=== PATIENT | female | born 1970 | race Hispanic/Latino ===

== ENCOUNTER 2018-08-10 19:48 | Emergency (ER) | payer OTHER, SELFPAY ==
[2018-08-10] MEDS ORDERED: IBUPROFEN 200 MG TAB ONE (21:04)
[2018-08-10] MEDS ORDERED: IBUPROFEN 400 MG TABLET ONE (21:04)
== END 2018-08-10 21:35 | disposition home or self-care (01) ==
LOC: EDH 19:48
DX: S63.591A Other specified sprain of right wrist, initial encounter (principal); F41.9 Anxiety disorder, unspecified; X58.XXXA Exposure to other specified factors, initial encounter; Y93.89 Activity, other specified; Y92.89 Other specified places as the place of occurrence of the external cause; Y99.8 Other external cause status
CPT/HCPCS: 29125

== ENCOUNTER 2020-11-20 14:39 | Emergency (ER) | payer OTHER ==
[~2020-11-20] VITALS: Ht 157.5 cm; Wt 104.3 kg
[2020-11-20 15:22] LABS: BASOPHILS % (AUTO) 0.6 % (0.0-5.0); EOSINOPHILS % (AUTO) 2.2 % (0.0-8.0); HEMATOCRIT 39.5 % (36-48); LYMPHOCYTES % (AUTO) 21.8 % (21.0-51.0); MEAN CORPUSCULAR HEMOGLOBIN 29.5 pg (27.0-33.0); MEAN CORPUSCULAR HGB CONC 33.7 g/dL (32.0-36.0); MEAN CORPUSCULAR VOLUME 87.6 fL (79-99); MONOCYTES % (AUTO) 7.2 % (3.0-13.0); NEUTROPHILS % (AUTO) 67.9 % (40.0-77.0); PLATELET COUNT (AUTO) 362 K/uL (130-400); RED BLOOD CELL COUNT(AUTO) 4.51 MIL/uL (4.00-5.50); RED CELL DISTRIBUTION WIDTH 12.1 % (11.0-15.5); WHITE BLOOD COUNT (AUTO) 7.1 K/uL (4.8-10.8)
[2020-11-20 15:26] LABS: APPEARANCE,URINE Clear (CLEAR); BILIRUBIN,URINE Negative (NEGATIVE); COLOR,URINE Yellow (YELLOW); GLUCOSE, URINE (UA) Negative (NEGATIVE); KETONES,URINE Negative (NEGATIVE); LEUKOCYTE ESTERASE ,URINE Negative (NEGATIVE); NITRATE,URINE Negative (NEGATIVE); OCCULT BLOOD,URINE Negative (NEGATIVE); PROTEIN,URINE Negative (NEGATIVE); UROBILINOGEN,URINE 0.2 mg/dL (0.2-1.0)
[2020-11-20 15:28] LABS: HCG,QUAL RESULT NEGATIVE (NEGATIVE)
[2020-11-20 15:36] LABS: CREATININE 0.7 mg/dL (0.5-1.5); POTASSIUM 3.8 mmol/L (3.5-5.1)
[2020-11-20 15:41] LABS: BILIRUBIN,TOTAL 0.6 mg/dL (0.2-1.0); TOTAL PROTEIN, SERUM 8.4 g/dL (6.0-8.3)
[2020-11-20] MEDS ORDERED: KETOROLAC 30MG VIAL (30MG/ML) IV ONE (18:30)
[2020-11-20 20:00] VITALS: BP 126/76
[2020-11-20] MEDS ORDERED: LIDOP TP (20:27)
[2020-11-20] MEDS ORDERED: ORPH-43 PO (20:27)
== END 2020-11-20 20:40 | disposition home or self-care (01) ==
LOC: EDH 14:39
DX: M62.830 Muscle spasm of back (principal); R10.9 Unspecified abdominal pain; M06.9 Rheumatoid arthritis, unspecified; Z87.442 Personal history of urinary calculi; M19.90 Unspecified osteoarthritis, unspecified site; Z79.899 Other long term (current) drug therapy
CPT/HCPCS: 36415; 74176; 80053; 81003; 81025; 85025; 96374; 99284; J1885

== ENCOUNTER 2024-03-28 07:18 | Emergency (ER) | payer SELFPAY ==
[~2024-03-28] VITALS: Ht 154.9 cm; Wt 113.4 kg
[~2024-03-28 07:18] MED LIST: LIDOP TP; ORPH100T4 PO
--- NOTE | 2024-03-28 07:39 | ERN ---
General Chief Complaint: Ankle Problem Stated Complaint: RT ANKLE PAIN Time Seen by MD: 07:24 Source: patient History of Present Illness Initial Comments Patient is a 53-year-old female coming in to be evaluated for right ankle pain. Per patient he states she was walking in the mud and bent her right ankle. States that the pain is localized to the right ankle region. Allergies: Coded Allergies: No Allergy Information Available (Verified Allergy, Unknown, 12/31/15) Home Meds Active Scripts Lidocaine (Lidoderm Patch 5%) 1 Patch Patch, 1 PATCH TP DAILY PRN for PAIN LEVEL 1 TO 5, #30 ADH.PATCH 0 Refills Prov:BELEM ESTEBAN MD 11/20/20 Orphenadrine Citrate (Orphenadrine Citrate) 100 Mg Tablet.er, 100 MG PO [id number], #20 TAB 0 Refills Prov:BELEM ESTEBAN MD 11/20/20 Past Medical History Past Medical History: Kidney Stone, Other Medical History Other: RA, OA Past Surgical History: Other Surgical History Other: KIDNEY STONES ROS Dictation CONSTITUTIONAL: No chills, no fever, no weakness, no diaphoresis, no malaise. HEAD/FACE: No signs of trauma. EENT: No eye pain, no blurred vision, no tearing, no double vision, no ear pain, no ear discharge, no nose pain, no nasal congestion, no throat pain, no throat swelling, no mouth pain. RESPIRATORY: No cough, no orthopnea, no SOB, no stridor, no wheezing. CARDIOVASCULAR: No chest pain, no edema, no palpitations, no syncope. GASTROINTESTINAL/ABDOMINAL: No abdominal pain, no constipation, no diarrhea, no nausea, no vomiting. GENITOURINARY: No abnormal discharge, no dysuria, no frequent urination, no hematuria. No complaints of pain in the genitals. MUSCULOSKELETAL: No back pain, no gout, joint pain, joint swelling, no muscle pain, no muscle stiffness, no neck pain. INTEGUMENTARY: No change in color, no change in hair/nails, no dryness, no lesion, no lumps, no rash. NEUROLOGICAL/PSYCH: No anxiety, not depressed, no emotional problem, no headache, no numbness, no pre-existing deficit, no history of seizures, no tremors, no weakness. HEMATOLOGIC/LYMPHATIC: Not anemic, no history of blood clots, no apparent bleeding, no bruising, glands not swollen. All Systems Negative, Except as Noted. Physical Exam Physical Exam Dictation VITAL SIGNS: Reviewed. GENERAL APPEARANCE: Alert, oriented x3, no acute distress, obese. HEAD AND FACE: Non-traumatic. EYES: PERRL, pink conjunctivas, eyelid no trauma, anterior chamber clear. EARS: Pinnas intact and no signs of trauma or erythema. Ear canals clear and no discharge. TMs no erythema. NOSE: No discharge, no bleeding. OROPHARYNX: Mouth normal, teeth no caries, tongue pink. Pharynx clear, no erythema. Tonsils no exudates, no abscesses noted. Mucous membrane moist. NECK: Supple, non-tender, no thyromegaly, no masses, no JVD, no bruits. BREAST: Deferred. CHEST: No tenderness, no crepitus, no paradoxical movement, no retractions. LUNGS: Clear, well-ventilated, symmetric, no rales, no wheezing, no rhonchi, no stridor, good breath sounds bilaterally. HEART: Regular rate, regular rhythm, no murmur, no gallops. VASCULAR: No peripheral edema. ABDOMEN: Soft, positive bowel sounds, nondistended, no guarding, nontender, no rebound, no masses no hepatomegaly, no splenomegaly, no Vang's sign, no hernias. RECTAL: Deferred. GENITAL: Deferred. NEUROLOGICAL: Normal speech, gross motor function intact, gross sensory function intact. MUSCULOSKELETAL: Neck nontender, full range of motion, back nontender, full r iker of motion. EXTREMITIES: Nontender, full range of motion. Right ankle pain on palpation, ankle swelling, pain on palpation SKIN: Color pink, dry, no turgor, no rash, no lacerations, no abrasions, no contusions. LYMPHATICS: Deferred. Results Laboratory and Microbiology Labs Reviewed?: Yes EKG/XRAY/US/CT/MRI X-RAY Comment ankle xray- bimalleolar fracture MDM MDM: Differential diagnosis: Bimalleolar fracture, fibula fracture, Patient is a 53-year-old female coming in to be evaluated for ankle pain. X-ray disclose bimalleolar fracture. Sugar-tong splint will be placed for support crutches will be provided. Patient will be discharged in stable condition I advised her appropriate follow up with ortho and PCP in order for further management and ongoing management. ED Course Orders Procedure Category Date Status Time Ankle Comp 3vws Rt RAD 03/28/24 Taken 07:32 Acetaminophen 500mg PHA 03/28/24 Complete Tab (Tylenol 500mg T 08:00 Naproxen (Naprosyn) PHA 03/28/24 Complete 08:00 Current Medications Medications (Trade) Dose Ordered Sig/Serena Route PRN Reason Start Time Stop Time Status Last Admin Dose Admin Acetaminophen (TYLenol 500MG TAB) 500 mg ONCE ONCE PO 03/28/24 08:00 03/28/24 08:01 DC Naproxen (Naprosyn) 500 mg ONCE ONCE PO 03/28/24 08:00 03/28/24 08:01 DC Vital Signs Date Time Temp Pulse Resp B/P (MAP) Pulse Ox O2 Delivery O2 Flow Rate FiO2 03/28/24 07:35 97.9 64 16 127/76 99 Room Air* 0 21 03/28/24 07:19 97.9 74 16 127/76 97 Room Air 0 DX & DISP Disposition: Discharge Departure Impression: Primary Impression: Bimalleolar fracture of right ankle Condition: Stable Scripts Naproxen (Naproxen) 500 Mg Tablet 1 TAB PO BID for pain for 7 Days, #14 TAB 0 Refills Prov: TRUNG JETT MD 03/28/24 Additional Instructions: FOLLOW-UP WITH PRIMARY CARE PROVIDER IN 1 TO 2 DAYS. TAKE MEDICATIONS DIRECTED HERE IN THE EMERGENCY ROOM. OKAY TO CONTINUE HOME MEDICATIONS UNLESS OTHERWISE DISCUSSED DURING YOUR VISIT IN THE EMERGENCY ROOM TODAY. RETURN TO YOUR NEAREST EMERGENCY ROOM IF SYMPTOMS WORSEN OR IF THERE IS NO IMPROVEMENT. CALL 911 IF YOU NEED IMMEDIATE ASSISTANCE. TAKE TYLENOL [id number] NEEDED AND IF NO CONTRAINDICATIONS ARE PRESENT. INCREASE ORAL HYDRATION. A WOUND CULTURE OR URINE CULTURE WAS ORDERED HERE IN THE EMERGENCY ROOM DEPARTMENT PLEASE FOLLOW-UP WITH PRIMARY CARE PROVIDER AND ADVISE THEM TO GET REPEAT PORTS FROM OUR FACILITY. IF YOU HAD ANY CHRIS WRAP/SPLINTS THAT WERE APPLIED HERE, PLEASE DO NOT REMOVE THEM UNTIL YOU SEE YOUR PRIMARY CARE OR SPECIALTY. Referrals: Referrals: SELF,REFERRAL (PCP) HEIKE MEJIAS MD, LUIS A MD Time of Disposition: 08:54 TRUNG JETT MD Mar 28, 2024 07:39
[2024-03-28] MEDS: NAPROXEN 500 MG TABLET PO ONE (07:41)
[2024-03-28] MEDS: acetaMINOPHEN 500 MG TABLET PO ONE (07:42)
[2024-03-28] MEDS ORDERED: NAPR-1194 PO (08:58)
--- NOTE | 2024-03-28 09:21 | HMCIMG ---
ANKLE COMP 3VWS RT REASON: ankle pain/ fall TECHNIQUE: 3 views were obtained. FINDINGS: There is a trimalleolar fracture of the right ankle, including a spiral fracture distal fibular metaphysis, the fracture of the medial malleolus and a fracture of the posterior lip of the distal tibia. Ankle mortise appears preserved. Talus and calcaneus appear unremarkable. IMPRESSION: 1. Trimalleolar fracture of the right ankle.
[2024-03-28 10:20] VITALS: BP 123/75; PULSE 68; RESP 17; TEMP 97.8; O2SAT 99
--- NOTE | 2024-03-28 10:20 | NUR ---
PLACED SUGARTONGUE SPLINT TO RLE, GOOD PMS. GAVE PT CRUTCHES ACCORDING TO HEIGHT. PT TAUGHT BACK ON HOW TO USE CRUTCHES.
== END 2024-03-28 10:15 | disposition home or self-care (01) ==
LOC: EDH 07:18
DX: S82.851A Displaced trimalleolar fracture of right lower leg, initial encounter for closed fracture (principal); Z79.899 Other long term (current) drug therapy; X58.XXXA Exposure to other specified factors, initial encounter; Y93.01 Activity, walking, marching and hiking; Y92.89 Other specified places as the place of occurrence of the external cause; Y99.8 Other external cause status
CPT/HCPCS: 29515; 73610; 99283

== ENCOUNTER 2024-03-30 16:17 | Inpatient (IN) | payer SELFPAY ==
[~2024-03-30] VITALS: Ht 157.5 cm; Wt 109.7 kg
[~2024-03-30 16:17] MED LIST changes: +NAPR-1194 PO
[2024-03-30 17:36] LABS: BASOPHILS # (AUTO) 0.04 K/uL (0.00-0.20); BASOPHILS % (AUTO) 0.5 % (0.0-5.0); EOSINOPHILS # (AUTO) 0.31 K/uL (0.00-0.70); EOSINOPHILS % (AUTO) 4.2 % (0.0-8.0); HEMATOCRIT 40.7 % (36-48); IMMATURE GRANULOCYTE ABSOLUTE 0.03 K/uL (0-1); LYMPHOCYTES # (AUTO) 2.1 K/uL (1.0-4.8); LYMPHOCYTES % (AUTO) 28.4 % (21.0-51.0); MEAN CORPUSCULAR HEMOGLOBIN 30.5 pg (27.0-33.0); MEAN CORPUSCULAR HGB CONC 33.2 g/dL (32.0-36.0); MEAN CORPUSCULAR VOLUME 92.1 fL (79-99); MONOCYTES # (AUTO) 0.5 K/uL (0.1-1.0); MONOCYTES % (AUTO) 6.7 % (3.0-13.0); NEUTROPHILS # (AUTO) 4.4 K/uL (1.8-7.7); NEUTROPHILS % (AUTO) 59.8 % (40.0-77.0); PLATELET COUNT (AUTO) 314 K/uL (130-400); RED BLOOD CELL COUNT(AUTO) 4.42 MIL/uL (4.00-5.50); RED CELL DISTRIBUTION WIDTH 12.4 % (11.0-15.5); WHITE BLOOD COUNT (AUTO) 7.3 K/uL (4.8-10.8)
--- NOTE | 2024-03-30 17:38 | ERN ---
General Chief Complaint: Lower Extremity Pain/Injury Stated Complaint: SENT BY , RIGHT ANKLE FRACTURE Time Seen by MD: 16:20 Time Seen by Midlevel: 16:20 Source: patient History of Present Illness Initial Comments 53-year-old female presents to the ED for evaluation of right lower extremity pain post fall onset two days ago. Patient reports she had x-rays done two days ago in our emergency department which showed a bimalleolar fracture. She was splinted and sent home. Today she follow up with an housing development specialist who recommended she return to the ER for further evaluation. Allergies: Coded Allergies: No Known Drug Allergies (Verified Allergy, Unknown, 03/30/24) Home Meds Active Scripts Naproxen (Naproxen) 500 Mg Tablet, 1 TAB PO BID for pain for 7 Days, #14 TAB 0 Refills Prov:TRUNG JETT MD 03/28/24 Lidocaine (Lidoderm Patch 5%) 1 Patch Patch, 1 PATCH TP DAILY PRN for PAIN LEVEL 1 TO 5, #30 ADH.PATCH 0 Refills Prov:BELEM ESTEBAN MD 11/20/20 Orphenadrine Citrate (Orphenadrine Citrate) 100 Mg Tablet.er, 100 MG PO [id number], #20 TAB 0 Refills Prov:BELEM ESTEBAN MD 11/20/20 Past Medical History Past Medical History: Kidney Stone, Other Medical History Other: RA, OA Past Surgical History: Other Surgical History Other: KIDNEY STONES ROS Dictation Constitutional: Negative for fever,chills, and weight loss Eyes: Negative for injury, pain,redness, and discharge ENT: Negative for injury,pain or swelling Cardiovascular: Negative for chest pain, palpitations, and edema Respiratory: Negative for shortness of breath, cough, and wheezing, Abdomen/GI: Negative for abdominal pain, nausea, vomiting, diarrhea, and constipation Back: Negative for injury and pain : Negative for injury, bleeding and discharge MS/Extremity: Positive for right ankle pain Skin: Negative for rash, and discoloration Neuro: Negative for headache, weakness, numbness, tingling, and seizure Psych: Negative for suicide ideation, homicidal ideation, and hallucinations Physical Exam Physical Exam Dictation General: awake, alert, NAD Head/Face: Normocephalic, atraumatic Eyes: PERRL, EOMI, vision at baseline ENT: oral cavity clear, TMs clear, no signs of infection Neck: Trachea midline, supple, no nuchal rigidity Cardiovascular: RRR, normal S1/S2, No MRGs, no JVD Respiratory: CTAB, no respiratory distress, No rales or wheezes Abdomen: Soft, non-tender, non-distended, normal bowel sounds, no guarding or rebound. Skin: Warm, dry, normal turgor, no rash MS/Extremity: Swelling to right ankle, Pulses equal, no cyanosis, neurovascular intac Neuro: COAx4, GCS 15, strength 5/5, CN 2-12 intact, normal cerebellar exam, normal gait, Psych: Normal behavior, mood, and affect normal Results Laboratory and Microbiology Lab and Micro Result MDM MDM: Differential diagnosis: Bimalleolar Fracture, injury, fall ERICK Harrell accepts patient for admission. Will take patient to the OR tomorrow morning Rationale: Tests considered and ordered secondary to shared decision making include: labs and radiology Risk of complication and/or morbidity or mortality of patient management: None Medications-Per medication reconciliation Need for hospitalization: Patient does meet criteria for hospitalization. Need for emergency major/minor surgery: No There are no social concerns with this patient. Patient's prior external medical records from other ER visits were reviewed by me as indicated. Prior testing and results from previous visits were reviewed. Prior tests were taken into account with medical decision making and resource utilization, independent historian/historians were used to obtain complete medical history. I independently interpreted the test that were performed, results were reviewed by me and considered findings on radiology if ordered. Medical management and examination interpretation discussions were had by me with other qualified healthcare professionals as indicated for the patient's care. ED Course [facility] [address] [place] [id number] IMAGING REPORT Signed PATIENT: MERARI SCHREIBER MR#: [id number] : 1970 SEX: F AGE: 53 LOCATION: EDHIP ORDER 55 STATUS: ADM IN REPORT#: [id number] SERVICE 53 REASON: previous fx ORDERING PHYSICIAN: KATARINA MARAVILLA PROCEDURE: [id number] - ANKLE COMP 3VWS RT RIGHT ANKLE RADIOGRAPHS - 3 VIEWS INDICATION: Pain COMPARISON: 03/28/2024 FINDINGS/IMPRESSION: AP, lateral, and oblique views. Trimalleolar fracture, unchanged, without callus formation. DICTATED BY: EMIGDIO PALACIO MD DATE: 03/30/241834 ELECTRONICALLY SIGNED BY: EMIGDOI PALACIO MD DATE: 03/30/241838 DX & DISP Disposition: Inpatient Decision to Admit Date: Mar 30, 2024 Departure Impression: Primary Impression: Bimalleolar fracture of right ankle Condition: Stable Referrals: SELF,REFERRAL (PCP) I have reviewed, & agreed with my scribe's, documentation. (I, Shirlene Ruiz, am scribing for MIRIAM Maravilla) I performed the substantive portion of the visit. I have reviewed and personally made and approve the management plan that is documented in the notes by myself or the ROSIE. I acknowledge full responsibility for the patient's management plan. I personally scribed for KATARINA MARAVILLA ([employer]) on 03/30/24 at 17:38. Electronically submitted by Shirlene Ruiz ([employer]). I personally scribed for KATARINA MARAVILLA ([employer]ETH[employer]ARIKA) on 03/30/24 at 17:39. Electronically submitted by Shirlene Ruiz ([employer]). I personally scribed for KATARINA MARAVILLA (STACIE) on 03/30/24 at 17:54. Electronically submitted by Shirlene Ruiz ([employer]). KATARINA MARAVILLA Mar 30, 2024 17:38
[2024-03-30 17:49] LABS: INR <= 0.93 (0.85-1.15); PROTHROMBIN TIME 9.9 SEC (9.6-11.6)
[2024-03-30 17:50] LABS: PARTIAL THROMBOPLASTIN TIME 24.6 SEC (26.3-35.5)
[2024-03-30 17:51] LABS: CREATININE 0.6 mg/dL (0.5-1.0); POTASSIUM 3.9 mmol/L (3.5-5.1)
[2024-03-30] MEDS ORDERED: ondanSETRON 4MG INJ IVP PRN (18:30)
[2024-03-30] MEDS ORDERED: LACTATED RINGERS 1000ML 1,000 ML IV SCH ×2 (18:30→19:30)
[2024-03-30] MEDS ORDERED: PANTOPrazole 40 MG/VIAL IVP SCH (18:30)
[2024-03-30] MEDS ORDERED: IpraTROPium/alBUTERol SULFATE 3 ML SOLUTION IH PRN (18:30)
[2024-03-30] MEDS ORDERED: morPHINE 2 MG SYG IVP PRN (18:30)
[2024-03-30] MEDS ORDERED: ketOROlac 15MG/ML VIAL (15MG/ML) IV PRN (18:30)
[2024-03-30] MEDS ORDERED: acetaMINOPHEN 325 MG TAB PO PRN ×2 (18:30→19:30)
--- NOTE | 2024-03-30 18:39 | HMCIMG ---
RIGHT ANKLE RADIOGRAPHS - 3 VIEWS INDICATION: Pain COMPARISON: 03/28/2024 FINDINGS/IMPRESSION: AP, lateral, and oblique views. Trimalleolar fracture, unchanged, without callus formation.
--- NOTE | 2024-03-30 18:41 | HMCIMG ---
ULTRASOUND VENOUS DOPPLER RIGHT LOWER EXTREMITY INDICATION: Pain and swelling. TECHNIQUE: Routine grayscale and color Doppler ultrasound of the right lower extremity veins performed. COMPARISON: None. FINDINGS: The demonstrated veins of the right lower extremity including the common femoral vein, femoral vein, and popliteal vein are associated with normal compressibility, augmentation, and flow. Normal respiratory variation was identified. No evidence for echogenic intraluminal thrombus. IMPRESSION: No evidence for deep venous thrombosis.
[2024-03-30] MEDS ORDERED: HYDROcodone/APAP 5/325 1 TAB TABLET PO PRN ×2 (19:30)
--- NOTE | 2024-03-30 20:39 | NUR ---
PATIENT REPORTS SHE DOES NOT TAKE ANY PRESCRIBED MEDICATIONS
[2024-03-30] MEDS: ENOXAPARIN SODIUM 30 MG/0.3 ML SQ ONE (20:51)
[2024-03-30 21:00] VITALS: BP 138/79; PULSE 88; RESP 20; TEMP 97.9
[2024-03-30 21:25] VITALS: O2SAT 98
[2024-03-30 23:41] VITALS: BP 113/71; PULSE 90; RESP 18; TEMP 98.7
[2024-03-31] VITALS (26 sets, daily range): BP systolic 105–145; BP diastolic 65–84; PULSE 59–100; RESP 16–24; TEMP 97.3–98.4; O2SAT 96–99
--- NOTE | 2024-03-31 07:41 | EKG ---
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
--- NOTE | 2024-03-31 08:00 | NUR ---
Dr. Corona present on unit.
[2024-03-31] MEDS: ceFEPime HCL 2 GM VIAL IVPB SCH (08:48)
--- NOTE | 2024-03-31 12:40 | NUR ---
[facility] CM MET WITH PT AND DAUGHTER IN ROOM, ASSESSMENT DONE. PATIENT IS INDEPENDENT PRIOR TO ADMISSION, LIVES AT HOME WITH HER SONS. PT HAS CRUTCHES AT HOME. DENIES ANY OTHER EQUIPMENT/SERVICES. FEELS SAFE TO GO BACK HOME, STILL WORK AND DRIVE, DAUGHTER ABLE TO ASSIST WITH TRANSPORTATION AND NEEDS NECESSARY. PT IS SELF-PAY, SONDRA ASSISTING PATIENT W/NEEDS. PT GIVEN [employer] INFO, [employer] LOW COST MED PLANS, AND GOOD RX. INFORMED PT MIGHT NEED A WALKER FOR SAFE DC HOME, PT UNABLE TO PAY PRIVATELY AT THIS TIME, HOSPITAL TO ASSIST PT WITH WALKER ONCE STABLE, PT MAY TAKE WALKER IN ROOM ONCE READY TO DC. PRIMARY NURSE AWARE. CLINICAL SPLIT LEATHER MOSSER EMMANUEL MILES AWARE. CM TO CONTINUE TO FOLLOW UP. Addendum: 04/01/24 at 1244 by WILLIE CARROLL LVN CM Amended: Links added.
[2024-03-31] MEDS ORDERED: ROPivacaine 0.5% 5MG/ML 30ML ONE (17:45)
[2024-03-31] MEDS ORDERED: LIDOCAINE 2%-EPI 1:200,000 20 ML VIAL IJ ONE (17:45)
[2024-03-31] MEDS ORDERED: dexaMETHasone SOD PHOSPHATE 10MG/ML 1ML VIAL ONE (17:47)
[2024-03-31] MEDS ORDERED: ondanSETRON 4MG INJ ONE (17:51)
[2024-03-31] MEDS ORDERED: proPOFol 10 MG/ML 20ML VIAL IV ONE ×2 (17:51→19:29)
[2024-03-31] MEDS ORDERED: rocuRONium bROMide 10MG/1ML 5ML VL ONE (17:51)
[2024-03-31] MEDS ORDERED: MIDAZOLAM HCL 1 MG/ML 2ML VIAL ONE (17:51)
[2024-03-31] MEDS ORDERED: FENTanyl CITRate PF 50 MCG/1 ML 5ML AMP IV ONE (17:52)
[2024-03-31] MEDS ORDERED: ceFAZolin SODIUM 1 GM VIAL ONE ×2 (18:26→18:38)
[2024-03-31] MEDS: ceFAZolin SODIUM 2 GM VIAL IVPB ONE (18:40)
[2024-03-31] MEDS ORDERED: NEOSTIGMINE METHYLSULFATE 1MG/ML IV ONE (19:43)
[2024-03-31] MEDS ORDERED: GLYCOPYRROLATE 0.2 MG/ML 5 ML VIAL ONE (19:43)
[2024-03-31] MEDS ORDERED: ketOROlac 30MG VIAL (30MG/ML) ONE (19:46)
[2024-03-31] MEDS ORDERED: FENTanyl CITRate PF 50 MCG/1 ML 2ML VIAL ONE (19:47)
--- NOTE | 2024-03-31 19:58 | OP ---
Operative Note: DATE OF PROCEDURE: 03/31/24 SURGEON: HEIKE MEJIAS MD PROMOTIONAL DEMONSTRATOR: [Frankie Ch CFA] ANESTHESIA: [General anesthesia plus regional block] ANESTHESIOLOGIST/MEDICAL TECHNOLOGIST CHIEF: [Gelacio Nath CRNA] PREOPERATIVE DIAGNOSIS: [Right ankle trimalleolar fracture] POSTOPERATIVE DIAGNOSIS: [Save] Implants: [[employer]ruff [employer]hew small fragment set. One 1/3 tubular plate, eight holes, seven screws. 2.7 locking plate, four holes and three screws.] PROCEDURE: [Open reduction internal fixation right ankle lateral malleolus and medial malleolar fracture.] ESTIMATED BLOOD LOSS: [Less than 50 mL] INDICATIONS: [The patient is a 53-year-old female that sustained a twisting injuries that resulted in a trimalleolar fracture. The patient was evaluated in the emergency room and then in my office and she has been admitted for an open reduction internal fixation of the unstable fracture. Procedure understood, risks, benefits and possible complications and she agreed signed the consent form.] * DESCRIPTION OF PROCEDURE: [After adequate general anesthesia was achieved and regional block obtained the patient's right lower extremity was prepped and draped in the usual manner previous placement of the tourniquet in the proximal thigh. The extremity was elevated and exsanguinated with an Esmarch bandage the tourniquet was inflated to 250 mmHg. Attention was given to the l ateral aspect of the ankle where a longitudinal incision was carried down from the tip of the malleolus proximally for approximately 10 cm through the skin and subcutaneous tissue. We proceeded to dissect free the fibula where the fracture was noted to be present and had an oblique pattern. With the use of the bone clamp and the fracture was reduced. A 2.7 lag screw was placed at the fracture site perpendicular to the fracture line previous drilling of both cortices obtaining an adequate fixation of the fracture. Then a [employer]ruff [employer] Nephew lateral malleolar plate was applied and secured 1st with one distal locking screw and then one proximal cortical screw. Once the fracture was adequately noted to be reduced and the plate in adequate position we proceeded to complete the reduction with application of more cortical screws proximally and locking screws distally. X-rays taken revealed an adequate reduction of the fracture. The syndesmosis was then tested and noted to be intact. Attention was then given to the medial malleolus where in the x-rays AP view it was noted the displaced fracture. For this reason a longitudinal incision was carried down in the medial malleolus to the skin followed by the dissection of the subcutaneous tissue the fracture was easily identified and noted to be a longitudinal fracture of the posterior part of the medial malleolus was displaced proximally. We then proceeded to reduce the fracture bringing it to its normal position using a bone clamp. The 2nd four hole plate was then inserted previous contouring to use as a buttress plate in the posteromedial aspect of the bone securing it with three screws, obtaining an adequate reduction. Final x-rays revealed an acceptable reduction of the medial and lateral malleolus fracture. The small posterior malleolar fracture remained slightly displaced but consisted of only less than 10% of the articular surface of the posterior aspect of the plafond. The wounds were then copiously irrigated with antibiotic solution and we proceeded to close the wounds with a approximation of the subcutaneous tissue with 2-0 Vicryl inverted stitches in both sides followed by approximation of the skin with david. The wounds were covered with Xeroform, 4x4s and cast padding was applied followed by a 2nd cast padding that involved all of the lower leg and foot and then a fiberglass posterior splint, short leg length was then applied and secured with the use of Dusty bandages. Once the cast splint was dry we proceeded to awaken the patient up and extubated, and taking her then to recovery room for follow-up by anesthesia. There were no complications in the procedure] HEIKE MEJIAS MD Mar 31, 2024 19:58
[2024-03-31] MEDS ORDERED: DiphenhydrAMINE HCL 25 MG CAPSULE PO PRN (20:00)
[2024-03-31] MEDS ORDERED: ceFAZolin SODIUM 2 GM VIAL IVP SCH (20:00)
[2024-03-31] MEDS ORDERED: HYDROcodone/APAP 5/325 1 TAB TABLET PO PRN ×2 (20:00)
[2024-03-31] MEDS: 0.9%NACL 1000ML 1,000 ML IV SCH (20:00)
[2024-03-31] MEDS: FENTanyl CITRate PF 50 MCG/1 ML 2ML VIAL ONE (20:22)
[2024-03-31] MEDS: acetaMINOPHEN 100 ML ONE (20:42)
[2024-04-01 00:45] VITALS: BP 113/74; PULSE 80
[2024-04-01] MEDS: ceFAZolin SODIUM 2 GM VIAL IVP SCH (01:39)
[2024-04-01 01:45] VITALS: BP 128/81; PULSE 81
[2024-04-01 02:45] VITALS: BP 109/70; PULSE 70; RESP 20; TEMP 98
[2024-04-01 03:34] VITALS: BP 109/70; PULSE 70; RESP 20; TEMP 98
[2024-04-01 08:00] VITALS: BP 132/77; PULSE 61; RESP 19; TEMP 97.8; O2SAT 96
[2024-04-01] MEDS: ENOXAPARIN SODIUM 40 MG/0.4 ML SYRINGE SQ SCH (08:32)
[2024-04-01] MEDS: polyETHYLene GLYCol 3350 17 GM POWD.PACK PO SCH (08:32)
--- NOTE | 2024-04-01 08:37 | PN ---
Postop day 1., status post right ankle trimalleolar fracture ORIF. Vital signs stable, afebrile. Patient comfortable with the adequate pain control. Splint intact, distal capillary refill normal, adequate range of motion of the toes. Awake, alert and oriented. Normal ventilatory effort. Assessment: Status post ORIF right ankle fracture. Plan patient will be dismissed this morning after PT. Vitals/Labs Vital Signs Date Time Temp Pulse Resp B/P (MAP) Pulse Ox O2 Delivery O2 Flow Rate FiO2 04/01/24 02:45 98.1 70 20 109/70 94 Room Air 04/01/24 00:45 2.0 03/31/24 21:20 28 Medications Current Medications Lactated Ringer's 1,000 ml @ 75 mls/hr [id number] IV; Start 03/30/24 at 18:30; Stop 03/30/24 at 18:38; Status DC Pantoprazole Sodium 40 mg Q24H IVP; Start 03/30/24 at 18:30; Stop 03/30/24 at 18:38; Status DC Ketorolac Tromethamine 15 mg Q12H PRN IV; Start 03/30/24 at 18:30; Stop 03/30/24 at 18:38; Status DC Morphine Sulfate 2 mg Q6H PRN IVP; Start 03/30/24 at 18:30; Stop 03/30/24 at 18:38; Status DC Albuterol 1 udvial Q6H PRN IH; Start 03/30/24 at 18:30; Stop 03/30/24 at 18:38; Status DC Acetaminophen 650 mg Q6H PRN PO; Start 03/30/24 at 18:30; Stop 03/30/24 at 18: 38; Status DC Ondansetron HCl 4 mg Q6H PRN IVP; Start 03/30/24 at 18:30; Stop 03/30/24 at 18:38; Status DC Lactated Ringer's 1,000 ml @ 0 mls/hr Q0M IV; Start 03/30/24 at 19:30; Stop 04/29/24 at 19:29 Acetaminophen 650 mg Q4H PRN PO; Start 03/30/24 at 19:30; Stop 04/01/24 at 00:00; Status DC Cefepime HCl 2 gm ONCALL IVPB Last administered on 03/31/24at 08:48; Start 03/31/24 at 08:00; Stop 03/31/24 at 21:40; Status DC Enoxaparin Sodium 30 mg ONCE ONCE SQ Last administered on 03/30/24at 20:51; Start 03/30/24 at 21:00; Stop 03/30/24 at 21:01; Status DC Acetaminophen/ Hydrocodone Bitart 1 tab Q6H PRN PO; Start 03/30/24 at 19:30; Stop 03/31/24 at 21:34; Status DC Acetaminophen/ Hydrocodone Bitart 2 tab Q6H PRN PO; Start 03/30/24 at 19:30; Stop 03/31/24 at 21:34; Status DC Ropivacaine 150 mg STK-MED ONCE .ROUTE; Start 03/31/24 at 17:45; Stop 03/31/24 at 17:45; Status DC Lidocaine/ Epinephrine 20 ml STK-MED ONCE IJ; Start 03/31/24 at 17:45; Stop 03/31/24 at 17:45; Status DC Dexamethasone Sodium Phosphate 10 mg STK-MED ONCE .ROUTE; Start 03/31/24 at 17:47; Stop 03/31/24 at 17:47; Status DC Midazolam HCl 2 mg STK-MED ONCE .ROUTE; Start 03/31/24 at 17:51; Stop 03/31/24 at 17:51; Status DC Ondansetron HCl 4 mg STK-MED ONCE .ROUTE; Start 03/31/24 at 17:51; Stop 03/31/24 at 17:51; Status DC Propofol 200 mg STK-MED ONCE IV; Start 03/31/24 at 17:51; Stop 03/31/24 at 17:51; Status DC Rocuronium [place] 50 mg STK-MED ONCE .ROUTE; Start 03/31/24 at 17:51; Stop 03/31/24 at 17:52; Status DC Fentanyl Citrate 250 mcg STK-MED ONCE IV; Start 03/31/24 at 17:52; Stop 03/31/24 at 17:52; Status DC Cefazolin Sodium 1 gm STK-MED ONCE .ROUTE; Start 03/31/24 at 18:26; Stop 03/31/24 at 18:26; Status DC Cefazolin Sodium 1 gm STK-MED ONCE .ROUTE; Start 03/31/24 at 18:38; Stop 03/31/24 at 18:39; Status DC Cefazolin Sodium 2 gm STK-MED ONCE IVPB Last administered on 03/31/24at 18:40; Start 03/31/24 at 18:40; Stop 03/31/24 at 19:25; Status DC Cefazolin Sodium 2 gm STK-MED ONCE IJ Last administered on 03/31/24at 18:40; Start 03/31/24 at 18:40; Stop 03/31/24 at 19:25; Status DC Propofol 200 mg STK-MED ONCE IV; Start 03/31/24 at 19:29; Stop 03/31/24 at 19:30 ; Status DC Sodium Chloride 1,000 ml @ 100 mls/hr Q10H IV Last administered on 04/01/24at 06:43; Start 03/31/24 at 20:00; Stop 04/01/24 at 19:59 Acetaminophen/ Hydrocodone Bitart 1 tab Q4H PRN PO; Start 03/31/24 at 20:00; Stop 04/05/24 at 19:59 Acetaminophen/ Hydrocodone Bitart 2 tab Q4H PRN PO; Start 03/31/24 at 20:00; Stop 04/05/24 at 19:59 Enoxaparin Sodium 40 mg DAILY SQ Last administered on 04/01/24at 08:32; Start 04/01/24 at 09:00; Stop 05/01/24 at 08:59 Polyethylene Glycol 17 gm DAILY PO Last administered on 04/01/24at 08:32; Start 04/01/24 at 09:00; Stop 05/01/24 at 08:59 Bisacodyl 10 mg DAILY PRN PO; Start 04/02/24 at 20:00; Stop 05/02/24 at 19:59 Ketorolac Tromethamine 30 mg Q6H PRN IV; Start 03/31/24 at 20:00; Stop 04/05/24 at 19:59 Diphenhydramine HCl 25 mg Q6H PRN PO; Start 03/31/24 at 20:00; Stop 04/30/24 at 19:59 Cefazolin Sodium 2 gm Q8H IVP; Start 03/31/24 at 20:00; Stop 03/31/24 at 21:31; Status DC Glycopyrrolate 1 mg STK-MED ONCE .ROUTE; Start 03/31/24 at 19:43; Stop 03/31/24 at 19:43; Status DC Neostigmine Methylsulfate 10 mg STK-MED ONCE IV; Start 03/31/24 at 19:43; Stop 03/31/24 at 19:43; Status DC Ketorolac Tromethamine 30 mg STK-MED ONCE .ROUTE; Start 03/31/24 at 19:46; Stop 03/31/24 at 19:47; Status DC Fentanyl Citrate 100 mcg STK-MED ONCE .ROUTE; Start 03/31/24 at 19:47; Stop 03/31/24 at 19:48; Status DC Fentanyl Citrate 100 mcg STK-MED ONCE .ROUTE Last administered on 03/31/24at 20:22; Start 03/31/24 at 20:18; Stop 03/31/24 at 20:19; Status DC Acetaminophen 100 ml @ As Directed STK-MED ONCE .ROUTE Last administered on 03/31/24at 20:42; Start 03/31/24 at 20:41; Stop 03/31/24 at 20:41; Status DC Cefazolin Sodium 2 gm Q8H IVP Last administered on 04/01/24at 01:39; Start 04/01/24 at 02:00; Stop 04/01/24 at 10:01 HEIKE MEJIAS MD Apr 01, 2024 08:36
[2024-04-01] MEDS ORDERED: HYDR-4060 PO (08:39)
--- NOTE | 2024-04-01 08:50 | DS ---
DISCHARGE SUMMARY [ Date of admission: 03/30/2024 Date of discharge: 04/01/2024 Final diagnosis: Right ankle trimalleolar fracture Surgical procedures: Open reduction internal fixation right ankle trimalleolar fracture on two to an 825 Summary of History and Physical: The patient is a 53-year-old female with no significant previous medical history that was admitted the day after she was seen in the emergency room after sustaining a fall. She was diagnosed with a fracture placed in a splint and sent to our office. Evaluation in the office show that she had a displaced trimalleolar fracture reason why she was then admitted again. The patient has not significant previous medical surgical history. No allergies. Social history is negative for use of tobacco or alcohol. 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 Hospital course: The patient was admitted in the evening and taken to the operating room the next day where under general anesthesia and regional block she underwent a trimalleolar fracture open reduction internal fixation. Postoperatively the patient remained hemodynamically stable and afebrile and a postop day 1. She was dismissed home. Condition on discharge: Good Disposition: The patient will be dismissed home. She is to continue elevating the extremity and use the scooter for assisted ambulation. She is to be nonweightbearing in the affected extremity. She is to return to the office in 10 days for removal of splint, stitch removal and cast placement. Medications has been sent to the pharmacy and include hydrocodone 1-2 tablets q.8 hours p.r.n. pain. Patient is to keep the cast dry and clean.] HEIKE MEJIAS MD Apr 01, 2024 08:50
--- NOTE | 2024-04-01 09:25 | HMCIMG ---
ANKLE COMP 3VWS RT REASON: ORIF RIGHT ANKLE FX, SX TECHNIQUE: 6 surgical spot views were obtained. These document operative reduction and internal fixation of right ankle fracture. Fluoroscopy time was 13 seconds. IMPRESSION: 1. Documentation of operative reduction and internal fixation right ankle fracture.
[2024-04-01] MEDS: ketOROlac 30MG VIAL (30MG/ML) IV PRN (10:58)
--- NOTE | 2024-04-01 11:10 | NUR ---
Pt reports 4 steps to enter the home with railing. Pt performed stair training with PT at IE with Mod A x2. Pt's goal is to be able to perform stairs with Min A x1 to DC home. However, if pt is nervous or uncomfortable to enter the home with AD, pt was instructed to get on the ground and scoot herself up on the steps while on her buttocks to prevent fall. Pt acknowledge and verbalized understanding.
[2024-04-01 12:00] VITALS: BP 107/64; PULSE 89; RESP 18; TEMP 98.4
--- NOTE | 2024-04-01 15:01 | NUR ---
DISCHARGE Patient been discharge home, all discharge instructions given to patient, no concerns at this time, all questions answered, all belongings given to patient.
[2024-04-02] MEDS ORDERED: BisaCODYL 5 MG TABLET.DR PO PRN (20:00)
== END 2024-04-01 15:55 | disposition home or self-care (01) | DRG 494 ==
LOC: EDH 16:17 → EDHIP 16:18 → 4AH 20:49
PROVIDERS: ADMIT Orthopaedic Surgery; ATTEND Orthopaedic Surgery
PROC: 0QSG04Z Reposition Right Tibia with Internal Fixation Device, Open Approach (ICD-10-PCS; 2024-03-31)
PROC: 3E0T3BZ Introduction of Anesthetic Agent into Peripheral Nerves and Plexi, Percutaneous Approach (ICD-10-PCS; 2024-03-31)
PROC: 0QSJ04Z Reposition Right Fibula with Internal Fixation Device, Open Approach (ICD-10-PCS; principal; 2024-03-31 17:56)
DX: S82.851A Displaced trimalleolar fracture of right lower leg, initial encounter for closed fracture (principal); Z87.442 Personal history of urinary calculi; W18.39XA Other fall on same level, initial encounter; Y93.89 Activity, other specified; Y92.89 Other specified places as the place of occurrence of the external cause; Y99.8 Other external cause status
CPT/HCPCS: 36415; 73610; 80048; 82550; 84703; 85025; 85610; 85730; 86850; 86900; 86901; 93005; 93971; 96372; 99285; G0378; J0690; J0692; J1100; J1650; J1885; J2250; J2405; J2704; J2710; J2795; J3010; J3490

== ENCOUNTER 2025-01-31 13:46 | Emergency (ER) | payer BC, SELFPAY ==
[~2025-01-31] VITALS: Ht 157.5 cm; Wt 99.8 kg
[~2025-01-31 13:46] MED LIST changes: +HYDR-4060 PO; -LIDOP TP
--- NOTE | 2025-01-31 14:00 | NUR ---
PT JUST NOW PLACED IN MY ED BED 11
[2025-01-31 14:12] LABS: IMMATURE GRANULOCYTE ABSOLUTE 0.04 K/uL (0-1); NUCLEATED RED BLOOD CELLS 0.0 % (0.0-0.19); PLATELET COUNT (AUTO) 347 K/uL (130-400); RED BLOOD CELL COUNT(AUTO) 4.33 MIL/uL (4.00-5.50); RED CELL DISTRIBUTION WIDTH 12.2 % (11.0-15.5); WHITE BLOOD COUNT (AUTO) 10.3 K/uL (4.8-10.8)
--- NOTE | 2025-01-31 14:12 | EKG ---
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
[2025-01-31 14:34] LABS: CREATININE 0.7 mg/dL (0.5-1.0); GLOMERULAR FILTR. RATE CALC 104.0 mL/min (>90); GLUCOSE,RANDOM 103.0 mg/dL (70-105); SODIUM SERUM 137.0 mmol/L (136-145); UREA NITROGEN, BLOOD 13.0 mg/dL (7-18)
[2025-01-31 14:35] LABS: INR 0.97 (0.85-1.15)
[2025-01-31 14:39] LABS: ASPARTATE AMINOTRANSFERASE 19.0 U/L (10-37); TOTAL PROTEIN, SERUM 8.1 g/dL (6.0-8.3)
--- NOTE | 2025-01-31 15:25 | NUR ---
PT OOB TO BR TO ATTEMPT URINE COLLECTION
--- NOTE | 2025-01-31 15:31 | NUR ---
URINE COLLECTED AND SENT
[2025-01-31] MEDS: FAMOTIDINE 20MG VIAL IV ONE (15:40)
[2025-01-31] MEDS: 0.9%NACL 1000ML 1,000 ML IV ONE (15:41)
[2025-01-31 15:42] LABS: APPEARANCE,URINE CLEAR (CLEAR); GLUCOSE, URINE (UA) NEGATIVE (NEGATIVE); LEUKOCYTE ESTERASE ,URINE 250 Leu/uL (NEGATIVE); NITRATE,URINE NEGATIVE (NEGATIVE); OCCULT BLOOD,URINE +- (TRACE) (NEGATIVE)
[2025-01-31 15:46] LABS: SQUAMOUS EPITHELIAL CELL,UR MOD /HPF (0-2)
--- NOTE | 2025-01-31 15:48 | ERN ---
General Chief Complaint: Abdominal Pain Stated Complaint: PELVIC PAIN Time Seen by MD: 13:49 Source: patient History of Present Illness Initial Comments Ms Williamson, 54F came to ED with chief complaint of sudden abdominal pain since November. She reports her abdominal pain is on and off, on a scale of 10, associated with nausea, increased burping, happens randomly with no association to food intake or activity since November. She reports she follows Dr. Taylor outpatient for the same complaint and had blood tests done which were negative previously. She reports suprapubic pain with urinary burning and today she had incontinence with no blood in the urine or fever. She is in menopause, not sexually active Timing/Duration: constant Severity: mild Associated Symptoms: nausea/vomiting Allergies: Coded Allergies: No Known Drug Allergies (Verified Allergy, Unknown, 03/30/24) Home Meds Active Scripts Hydrocodone/Acetaminophen (Hydrocodon-Acetaminophen 5-325) 5 Mg-325 Mg Tablet, 1-2 EACH PO Q8H for Acute popstop pain(G89.18) for 7 Days, #42 TAB 0 Refills Prov:HEIKE MEJIAS MD 04/01/24 Naproxen (Naproxen) 500 Mg Tablet, 1 TAB PO BID for pain for 7 Days, #14 TAB 0 Refills Prov:TRUNG JETT MD 03/28/24 Orphenadrine Citrate (Orphenadrine Citrate) 100 Mg Tablet.er, 100 MG PO [id number], #20 TAB 0 Refills Prov:BELEM ESTEBAN MD 11/20/20 Past Medical History Past Medical History: Kidney Stone, Other Medical History Other: RA, OA Past Surgical History: Other Surgical History Other: KIDNEY STONES Gastrointestinal/Abdominal: (+) nausea, (+) abdominal pain Physical Exam General Appearance: (+) no apparent distress Orientation: (+) alert, (+) oriented x 3 Head/Face Trauma: No Eye: bilateral eye normal inspection Ear, Nose, Throat: (+) hearing grossly normal Neck: (+) normal inspection Respiratory: (+) chest non-tender, (+) lungs clear, (+) well ventilated Heart: (+) regular, (+) no gallop Vascular: (+) no edema Gastrointestinal: (+) soft, (+) tender Breast Exam: (+) deferred Genital: (+) deferred Rectal: (+) deferred Back: (+) normal inspection Extremities: (+) normal range of motion, (+) non-tender, (+) normal inspection Neurologic/Psychiatric: (+) normal speech, (+) no motor defecits, (+) no sensory deficits Skin: (+) normal color Lymphatic: (+) no adenopathy Results Laboratory and Microbiology Lab and Micro Result Laboratory Tests Test 01/31/25 14:03 01/31/25 15:25 White Blood Count 10.3 K/uL (4.8-10.8) Red Blood Count 4.33 MIL/uL (4.00-5.50) Hemoglobin 13.0 g/dL (12.0-16.0) Hematocrit 38.2 % (36-48) Mean Corpuscular Volume 88.2 fL (79-99) Mean Corpuscular Hemoglobin 30.0 pg (27.0-33.0) Mean Corpuscular Hemoglobin Concent 34.0 g/dL (32.0-36.0) Red Cell Distribution Width 12.2 % (11.0-15.5) Platelet Count 347 K/uL (130-400) Mean Platelet Volume 9.5 fL (7.5-10.5) Immature Granulocyte % (Auto) 0.4 % (0-1) Neutrophils (%) (Auto) 74.4 % (40.0-77.0) Lymphocytes (%) (Auto) 18.2 % (21.0-51.0) L Monocytes (%) (Auto) 5.8 % (3.0-13.0) Eosinophils (%) (Auto) 0.8 % (0.0-8.0) Basophils (%) (Auto) 0.4 % (0.0-5.0) Neutrophils # (Auto) 7.6 K/uL (1.8-7.7) Lymphocytes # (Auto) 1.9 K/uL (1.0-4.8) Monocytes # (Auto) 0.6 K/uL (0.1-1.0) Eosinophils # (Auto) 0.08 K/uL (0.00-0.70) Basophils # (Auto) 0.04 K/uL (0.00-0.20) Absolute Immature Granulocyte (auto 0.04 K/uL (0-1) Nucleated Red Blood Cells 0.0 % (0.0-0.19) Prothrombin Time 10.3 SEC (9.6-11.6) Prothromb Time International Ratio 0.97 (0.85-1.15) Activated Partial Thromboplast Time 25.4 SEC (26.3-35.5) L Sodium Level 137 mmol/L (136-145) Potassium Level 4.0 mmol/L (3.5-5.1) Chloride Level 103 mmol/L (101-111) Carbon Dioxide Level 27 mmol/L (21-32) Blood Urea Nitrogen 13 mg/dL (7-18) Creatinine 0.7 mg/dL (0.5-1.0) Glomerular Filtration Rate Calc 104 mL/min (>90) Random Glucose 103 mg/dL (70-105) Lactic Acid Level 0.9 mmol/L (0.8-2.5) Total Calcium 8.9 mg/dL (8.5-10.1) Total Bilirubin 0.6 mg/dL (0.2-1.0) Direct Bilirubin 0.1 mg/dL (0.0-0.3) Aspartate Amino Transf (AST/SGOT) 19 U/L (10-37) Alanine Aminotransferase (ALT/SGPT) 24 U/L (12-78) Alkaline Phosphatase 122 U/L (50-136) Troponin I High Sensitivity 15 ng/L (4-50) Total Protein 8.1 g/dL (6.0-8.3) Albumin 3.6 g/dL (3.5-5.0) Lipase 46 U/L (16-77) Urine Color YELLOW (YELLOW) Urine Appearance CLEAR (CLEAR) Urine pH 5.5 (5.0-8.0) Urine Specific [place] 1.028 (1.001-1.031) Urine Protein 20 mg/dL (NEGATIVE) H Urine Glucose (UA) NEGATIVE mg/dL (NEGATIVE) Urine Ketones NEGATIVE mg/dL (NEGATIVE) Urine Occult Blood +- (TRACE) (NEGATIVE) H Urine Nitrate NEGATIVE (NEGATIVE) Urine Bilirubin NEGATIVE mg/dL (NEGATIVE) Urine Urobilinogen 0.2 mg/dL (0.2-1.0) Urine Leukocyte Esterase 250 Eufemia/uL (NEGATIVE) H Urine RBC 6-10 /HPF (0-1) H Urine WBC 11-25 /HPF (0-1) H Urine Squamous Epithelial Cells MOD /HPF (0-2) Urine Bacteria FEW /HPF (None Seen) Urine Hyaline Casts 2-5 /LPF (0-1 /LPF) H MDM MDM: Differential diagnosis: Rationale: Tests considered and ordered secondary to shared decision making include: Previous outside records reviewed: Old ER visits. Risk of complication and/or morbidity or mortality of patient management: None Medications-Per medication reconciliation Need for hospitalization: Patient does not meet criteria for hospitalization. Need for emergency major/minor surgery: No There are no social concerns with this patient. Prescription drug management Prescriptions will include symptomatic care Patient's prior external medical records from other ER visits were reviewed by me as indicated. Prior testing and results from previous visits were reviewed. Prior tests were taken into account with medical decision making and resource utilization, independent historian/historians were used to obtain complete medical history. I independently interpreted the test that were performed, results were reviewed by me and considered findings on radiology if ordered. Medical management and examination interpretation discussions were had by me with other qualified healthcare professionals as indicated for the patient's care. ED Course Orders Procedure Category Date Status Time 12 Lead Ekg Tracing- EKG 01/31/25 Complete Technical 13:49 Cbc With Differential LAB 01/31/25 Complete 13:49 Basic Metabolic Panel LAB 01/31/25 Complete 13:49 Hepatic Function Panel LAB 01/31/25 Complete 13:49 Lactic Acid LAB 01/31/25 Complete 13:49 Lipase LAB 01/31/25 Complete 13:49 Pt And Ptt LAB 01/31/25 Complete 13:49 Troponin I High LAB 01/31/25 Complete Sensitivity 13:49 Urinalysis LAB 01/31/25 Complete W/Microscopic 13:49 Ondansetron 4mg Inj PHA 01/31/25 Complete (Zofran 4mg Inj) 14:00 Famotidine 20mg Vial PHA 01/31/25 Complete (Pepcid 20mg Vial) 14:00 Morphine 2mg Syg PHA 01/31/25 Complete (Morphine 2mg Syg) 14:00 0.9%Nacl 1000ml (Ns PHA 01/31/25 Complete 1000ml) 15:00 Culture Urine MIKEY 01/31/25 Logged 15:43 Ceftriaxone 1g Vial PHA 01/31/25 Transmitted (Rocephine 1g Inj) 16:00 Current Medications Medications (Trade) Dose Ordered Sig/Serena Route PRN Reason Start Time Stop Time Status Last Admin Dose Admin Famotidine (Pepcid 20mg Vial) 20 mg ONCE ONCE IV 01/31/25 14:00 01/31/25 14:01 DC 01/31/25 15:40 Morphine Sulfate (morPHINE 2MG SYG) 2 mg ONCE ONCE IVP 01/31/25 14:00 01/31/25 14:01 DC 01/31/25 15:40 Ondansetron HCl (zoFRAN 4MG INJ) 4 mg ONCE ONCE IVP 01/31/25 14:00 01/31/25 14:01 DC 01/31/25 15:40 Sodium Chloride 1,000 ml @ 0 mls/hr ONCE ONCE IV 01/31/25 15:00 01/31/25 15:01 DC 01/31/25 15:41 Vital Signs Date Time Temp Pulse Resp B/P (MAP) Pulse Ox O2 Delivery O2 Flow Rate FiO2 01/31/25 13:47 98.2 87 16 145/77 99 Room Air DX & DISP Disposition: Discharge Departure Impression: Primary Impression: UTI (urinary tract infection) Condition: Stable Scripts Sulfamethoxazole/Trimethoprim (Bactrim Ds Tablet) 800 Mg-160 Mg Tablet 1 TAB PO BID for 7 Days, #14 TAB 0 Refills Prov: ANNALISA BARAJAS MD 01/31/25 Referrals: SELF,REFERRAL (PCP) TIMOTHY POLLOCK MD Jan 31, 2025 15:48 ANNALISA BARAJAS MD Jan 31, 2025 15:56
[2025-01-31] MEDS ORDERED: SULF1TAB42 PO (15:56)
[2025-01-31 16:45] VITALS: BP 154/70; PULSE 80; RESP 16; TEMP 98; O2SAT 100
== END 2025-01-31 17:06 | disposition home or self-care (01) ==
LOC: EDH 13:46
DX: N39.0 Urinary tract infection, site not specified (principal); R32 Unspecified urinary incontinence; M19.90 Unspecified osteoarthritis, unspecified site; Z78.0 Asymptomatic menopausal state; Z87.442 Personal history of urinary calculi
CPT/HCPCS: 99284; 96365; 96375; 80076; 84484; 80048; 83690; 85025; 85610; 85730; 87086; 83605; 81001; 36415; 93005; J1308; J2270; J7030; J0696; J2405